=== PATIENT | female | born 1995 | race Caucasian/White ===

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

== ENCOUNTER 2017-03-13 20:58 | Emergency (ER) | payer OTHER ==
[2017-03-13 21:54] VITALS: BP 106/66; PULSE 73; TEMP 98.4; BMI 30.7
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
[2017-03-13] MEDS ORDERED: PANTOPRAZOLE 40 MG TABLET (FP) PO ONE (23:59)
[2017-03-14] MEDS ORDERED: PANTOPRAZOLE 40 MG TABLET (FP) ONE (00:04)
== END 2017-03-14 00:08 | disposition home or self-care (01) ==
LOC: FER 20:58
DX: R10.13 Epigastric pain (principal)
CPT/HCPCS: 76705-TC; 99282-25

== ENCOUNTER 2017-06-11 12:12 | Emergency (ER) | payer OTHER ==
[2017-06-11 12:22] VITALS: BMI 30.9
--- NOTE | 2017-06-11 12:58 | PDOC ---
Attending Attestation - Resident Resident Name: LeungCatalina - ED Attending Attestation I have performed the following: I have examined & evaluated the patient, The case was reviewed & discussed with the resident, I agree w/resident's findings & plan, Exceptions are as noted - HPI HPI: 06/11/17 13:37 22yo female with 1 episode of BRBPR. no lightheaded or dizziness. No abd pain. No vomiting or nausea. No prior episodes. No cp/sob. - Physicial Exam PE: 06/11/17 13:38 gen: aaox3, nad heart: +s1s2 reg Lungs: cta b/l abd: soft, mild epigastric ttp, no rebound or guarding ext: no c/c/e skin: no pallor - Medical Decision Making 06/11/17 13:38 a/p: 22yo female with BRBPR -labs -ua -ucg -rectal heme card eval -reassess 06/11/17 13:39 pt ambulatory with a steady gait. pt nontoxic appearing. 06/11/17 14:36 labs reviewed. hgb stable. pt stable for d/c to home. discussed all reasons to return to the ed and need for follow up. answered all questions. pt without rectal bleeding or brbpr in ed. pt will need to follow up with pmd and gi as an oupt.
[2017-06-11] MEDS ORDERED: MAG HYDROX/AL HYDROX/SIMETH 30 ML UNIT-DOSE CUP PO ONE (13:09)
[2017-06-11] MEDS ORDERED: MAG HYDROX/AL HYDROX/SIMETH 30 ML UNIT-DOSE CUP ONE (13:20)
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
[2017-06-11 14:01] LABS: BASOPHIL 0.8 % (0-2.0); EOSINOPHIL 1.4 % (0-4.5); MCH 30.5 pg (25.7-33.7); MCHC 34.2 g/dl (32.0-36.0); MEAN CELL VOLUME 89.2 fl (80-96); MEAN PLT VOLUME 6.3 fl (7.5-11.1); NEUTROPHILS 52.1 % (42.8-82.8); PLATELET COUNT 312 K/MM3 (134-434); RDW 12.6 % (11.6-15.6); WHITE BLOOD COUNT 9.4 K/mm3 (4.0-10.0)
[2017-06-11 14:04] LABS: STOOL FOR OCCULT BLOOD POSITIVE (NEGATIVE)
[2017-06-11 14:07] LABS: URINE APPEARANCE SLCLOUDY; URINE BILIRUBIN NEGATIVE (NEGATIVE); URINE BLOOD NEGATIVE (NEGATIVE); URINE COLOR LTYELLOW; URINE GLUCOSE (UA) NEGATIVE (NEGATIVE); URINE KETONE NEGATIVE (NEGATIVE); URINE LEUK ESTERASE NEGATIVE (NEGATIVE); URINE NITRITE NEGATIVE (NEGATIVE); URINE UROBILINOGEN NEGATIVE mg/dL (0.2-1.0)
[2017-06-11 14:16] LABS: URINE PROTEIN 2+ (NEGATIVE)
[2017-06-11 14:32] LABS: ANION GAP 11 (8-16); BILIRUBIN,TOTAL 0.3 mg/dL (0.2-1.0); CALCIUM 8.4 mg/dL (8.5-10.1); CO2 22 mmol/L (21-32); CREATININE 0.5 mg/dL (0.55-1.02); GLUCOSE,RANDOM 80 mg/dL (74-106); SGOT/AST 20 U/L (15-37); TOT PROT 6.3 g/dl (6.4-8.2)
[2017-06-11 14:36] LABS: URINE MUCUS RARE; URINE RBC 1 /hpf (0-3); URINE WBC 2 /hpf (3-5)
[2017-06-11 14:40] LABS: ALK PHOS 84 U/L (45-117); SGPT/ALT 22 U/L (12-78)
[2017-06-11 14:47] VITALS: BP 118/76; PULSE 68; TEMP 98.1
== END 2017-06-11 15:04 | disposition home or self-care (01) ==
LOC: JER 12:12
DX: K62.5 Hemorrhage of anus and rectum (principal)
CPT/HCPCS: 36415; 80053; 81003; 81015; 82272; 84703; 85025; 99283-25

== ENCOUNTER 2017-07-22 20:20 | Observation (INO) | payer OTHER ==
--- NOTE | 2017-07-22 20:34 | PDOC ---
History of Present Illness - General History Source: Patient Exam Limitations: No Limitations - History of Present Illness Initial Comments: 07/22/17 20:56 22 year old female, with no significant past medical history, who presents to the emergency room complaining of 3 hours of progressively worsening epigastric pain that feels like burning and radiates to her throat and nausea that began 1 hour after eating. She states that the pain is worse with movement and states that these symptoms feel like acid stomach that she has experienced in the past. She took peptobismol without relief. She has visited the ED on and 03/13/17 with similar complaints - had an negative gallbladder ultrasound and was discharged with protonix. Denies fever, chills, vomiting, Denies diarrhea, constipation. Denies vaginal bleeding, discharge, foul odor. PMD: Dr. Ila Genao PAST MEDICAL HISTORY: no significant history PAST SURGICAL HISTORY: no significant history FAMILY HISTORY: no pertinent history SOCIAL HISTORY: Pt lives with family and is employed. MEDICATIONS: reviewed ALLERGIES: As per nursing notes Review of Systems General: No fevers or chills, no weakness, no weight loss HEENT: No change in vision. No sore throat, No ear pain CardioVascular: No chest pain or shortness of breath Respiratory:No cough, or wheezing. Gastrointestinal: +epigastric pain, nausea. no vomiting, diarrhea or constipation, No rectal bleeding Genitourinary: No dysuria, hematuria, or frequency Musculoskeletal: No joint or muscle pain or swelling Neurologic: No headache, vertigo, dizziness or loss of consciousness Psychiatric: nor depression Skin: No rashes or easy bruising Endocrine: no increased thirst or abnormal weight change Allergic: no skin or latex allergy All other systems reviewed and normal Physical Exam GENERAL: The patient is awake, alert, and fully. Mod distress. tearful oriented, in no acute distress. HEAD: Normal with no signs of trauma. EYES: Pupils equal, round and reactive to light, extraocular movements intact, sclera anicteric, conjunctiva clear. ABDOMEN: + Bowel sounds are slightly decreased. +Diffuse abdominal tenderness that is more pronounced in the epigastric region. No guarding, no rebound. EXTREMITIES: Normal range of motion, no edema. NEUROLOGICAL: Normal speech, normal gait. PSYCH: Normal mood, normal affect. SKIN: Warm, Dry, normal turgor, no rashes or lesions noted. <Estatico,Alexus - Last Filed: 07/22/17 20:57> - General History Source: Patient Exam Limitations: No Limitations - History of Present Illness Initial Comments: 07/23/17 00:10 A portion of this note was documented by scribe services under my direction. I have reviewed the details of the note, within reason, and agree with the documentation. The case summary and management plan written by me. Reexam of patient patient is no moderately tender in right lower quadrant are still no guarding or rebound.. Patient's CAT scan came back positive for acute appendicitis. Discussed with Dr. Rosales who will be the design consultant on the case and Renuka will take the patient to the OR first thing in the morning. Patient will be admitted to the hospitalist service. <Sheila Anna I - Last Filed: 07/23/17 00:29> - General Chief Complaint: Pain Stated Complaint: ABD PAIN Time Seen by Provider: 07/22/17 20:28 Past History <Alexus Rios - Last Filed: 07/22/17 20:57> - Past Medical History GI Disorders: Yes (gastritis) - Suicide/Smoking/Psychosocial Hx Smoking History: Never smoked Have you smoked in the past 12 months: No Information on smoking cessation initiated: No Hx Alcohol Use: No Drug/Substance Use Hx: No Substance Use Type: None <Sheila Anna I - Last Filed: 07/23/17 00:29> - Past Medical History Allergies/Adverse Reactions: Allergies Allergy/AdvReac Type Severity Reaction Status Date / Time No Known Allergies Allergy Verified 07/22/17 20:25 Home Medications: Ambulatory Orders Medroxyprogesterone Acetate [Depo-Provera] 150 mg IM PRN 06/11/17 *Physical Exam - Vital Signs Last Vital Signs Temp Pulse Resp BP Pulse Ox 98.3 F 81 18 134/77 100 07/22/17 20:20 07/22/17 20:20 07/22/17 20:20 07/22/17 20:20 07/22/17 20:20 <Alexus Rios - Last Filed: 07/22/17 20:57> - Vital Signs Last Vital Signs Temp Pulse Resp BP Pulse Ox 98.3 F 81 18 134/77 100 07/22/17 20:20 07/22/17 20:20 07/22/17 20:20 07/22/17 20:20 07/22/17 20:20 <Sheila Anna I - Last Filed: 07/23/17 00:29> ED Treatment Course - LABORATORY CBC & Chemistry Diagram: 07/22/17 20:59 07/22/17 20:59 <Sheila Anna I - Last Filed: 07/23/17 00:29> *DC/Admit/Observation/Transfer <Alexus Rios - Last Filed: 07/22/17 20:57> - Discharge Dispostion Admit: Yes <Sheila Anna I - Last Filed: 07/23/17 00:29> Diagnosis at time of Disposition: Acute appendicitis - Discharge Dispostion Condition at time of disposition: Stable
[2017-07-22] MEDS ORDERED: FAMOTIDINE 20 MG/50 ML IVPB 50 ML IVPB ONE ×2 (20:49→21:00)
[2017-07-22] MEDS ORDERED: morphine CARPU-JECT 4 MG/1 ML DISP.SYRIN IVPUSH ONE (20:49)
[2017-07-22] MEDS ORDERED: morphine SULFATE 4 MG/ML VIAL ONE (21:00)
[2017-07-22 21:04] LABS: URINE APPEARANCE Clear; URINE BILIRUBIN Negative (NEGATIVE); URINE GLUCOSE (UA) Negative (NEGATIVE); URINE KETONE Trace (NEGATIVE); URINE LEUK ESTERASE Negative (NEGATIVE); URINE NITRITE Negative (NEGATIVE)
[2017-07-22 21:05] LABS: URINE BLOOD Trace-intact (NEGATIVE); URINE COLOR YELLOW; URINE PROTEIN 2+ (NEGATIVE)
[2017-07-22 21:10] LABS: BASOPHIL 1.1 % (0-2.0); EOSINOPHIL 0.9 % (0-4.5); MCH 30.7 pg (25.7-33.7); MCHC 34.5 g/dl (32.0-36.0); MEAN PLT VOLUME 6.8 fl (7.5-11.1); NEUTROPHILS 74.2 % (42.8-82.8); PLATELET COUNT 356 K/MM3 (134-434); RDW 11.8 % (11.6-15.6); WHITE BLOOD COUNT 16.4 K/mm3 (4.0-10.8)
[2017-07-22 21:22] LABS: ALBUMIN 3.4 g/dl (3.5-5.0); ALK PHOS 81 U/L (32-92); ANION GAP 7 (8-16); BILIRUBIN,TOTAL 0.6 mg/dl (0.2-1.0); CALCIUM 8.8 mg/dl (8.4-10.2); CO2 21 mmol/L (22-28); CREATININE 0.8 mg/dl (0.6-1.3); GLUCOSE,RANDOM 128 mg/dl (74-106); SGOT/AST 21 U/L (10-42); SGPT/ALT 17 U/L (10-40); TOT PROT 6.7 g/dl (6.4-8.3)
[2017-07-22] MEDS ORDERED: SODIUM CHLORIDE 1,000 ML IV ONE (21:30)
[2017-07-22] MEDS ORDERED: ONDANSETRON 4 MG/2 ML VIAL IVPB ONE (21:30)
[2017-07-22] MEDS ORDERED: ONDANSETRON 4 MG/2 ML VIAL ONE (21:33)
[2017-07-22 21:39] LABS: URINE WBC 0-1 (3-5)
[2017-07-23] MEDS ORDERED: PIPERACILLIN/TAZOBACTAM 3.375 GM VIAL IVPB ONE (00:15)
[2017-07-23] MEDS ORDERED: PIPERACIL/TAZOB 3.375 GM 3.375 GM/50 ML PREMIX IVPB ONE (00:16)
[2017-07-23] MEDS ORDERED: morphine SULFATE 4 MG/ML VIAL ONE (00:27)
[2017-07-23] MEDS ORDERED: morphine CARPU-JECT 4 MG/1 ML DISP.SYRIN IVPUSH ONE (00:27)
[2017-07-23] MEDS ORDERED: ONDANSETRON 4 MG/2 ML VIAL IVPUSH PRN ×2 (00:39→14:19)
[2017-07-23] MEDS ORDERED: morphine CARPU-JECT 2 MG/1 ML DISP.SYRIN IVPUSH PRN (00:39)
[2017-07-23] MEDS ORDERED: SODIUM CHLORIDE 1,000 ML IV SCH (00:45)
--- NOTE | 2017-07-23 01:10 | HP ---
CHIEF COMPLAINT: abdominal pain PCP: Ila Genao HISTORY OF PRESENT ILLNESS: This is a 22 year old female with no past medical history who presented to the ED with abdominal since approx 430pm. She states that initially the pain was all over, but especially epigastric and had a burning sensation. She took peptobismol without relief and the pain worsened so she came here. Her pain now is more localized to her RLQ. She also reports nausea but denies diarrhea or constipation. ER course was notable for: (1) WBC 16.4 (2) CT c/w acute nonperforated appendicitis Recent Travel: pt denies PAST MEDICAL HISTORY: none PAST SURGICAL HISTORY: none Social History: Smoking: pt denies Alcohol: pt denies Drugs: pt denies Family History: mother, father, 6 siblings all alive and well, no medical problems. Unknown if grandparents had any medical problems Allergies No Known Allergies Allergy (Verified 07/22/17 20:25) HOME MEDICATIONS: 3 Medication Instructions Recorded Medroxyprogesterone Acetate 150 mg IM PRN 06/11/17 [Depo-Provera] REVIEW OF SYSTEMS CONSTITUTIONAL: Absent: fever, chills, diaphoresis, generalized weakness, malaise, loss of appetite, weight change HEENT: Absent: rhinorrhea, nasal congestion, throat pain, throat swelling, difficulty swallowing, mouth swelling, ear pain, eye pain, visual changes CARDIOVASCULAR: Absent: chest pain, syncope, palpitations, irregular heart rate, lightheadedness , peripheral edema RESPIRATORY: Absent: cough, shortness of breath, dyspnea with exertion, orthopnea, wheezing, stridor, hemoptysis GASTROINTESTINAL: Present: abdominal pain, nausea Absent: abdominal distension, vomiting, diarrhea, constipation, melena, hematochezia GENITOURINARY: Absent: dysuria, frequency, urgency, hesitancy, hematuria, flank pain, genital pain MUSCULOSKELETAL: Absent: myalgia, arthralgia, joint swelling, back pain, neck pain SKIN: Absent: rash, itching, pallor HEMATOLOGIC/IMMUNOLOGIC: Absent: easy bleeding, easy bruising, lymphadenopathy, frequent infections ENDOCRINE: Absent: unexplained weight gain, unexplained weight loss, heat intolerance, cold intolerance NEUROLOGIC: Absent: headache, focal weakness or paresthesias, dizziness, unsteady gait, seizure, mental status changes, bladder or bowel incontinence PSYCHIATRIC: Absent: anxiety, depression, suicidal or homicidal ideation, hallucinations. PHYSICAL EXAMINATION Vital Signs - 24 hr 3 07/22/17 07/23/17 20:20 00:36 Temperature 98.3 F 99.1 F Pulse Rate 81 Pulse Rate [ 84 Radial] Respiratory 18 20 Rate Blood Pressure 134/77 Blood Pressure 119/79 [Arm] O2 Sat by Pulse 100 98 Oximetry (%) GENERAL: Awake, alert, and fully oriented, in no acute distress. HEAD: Normal with no signs of trauma. EYES: Pupils equal, round and reactive to light, extraocular movements intact, sclera anicteric, conjunctiva clear. No lid lag. EARS, NOSE, THROAT: Ears normal, nares patent, oropharynx clear without exudates. Moist mucous membranes. NECK: Normal range of motion, supple without lymphadenopathy, JVD, or masses. LUNGS: Breath sounds equal, clear to auscultation bilaterally. No wheezes, and no crackles. No accessory muscle use. HEART: Regular rate and rhythm, normal S1 and S2 without murmur, rub or gallop. ABDOMEN: Soft, not distended, normoactive bowel sounds, + guarding, + rebound, no masses. No hepatomegaly or splenomegaly. + generalized tenderness greatest in RLQ MUSCULOSKELETAL: Normal range of motion at all joints. No bony deformities or tenderness. No CVA tenderness. UPPER EXTREMITIES: 2+ pulses, warm, well-perfused. No cyanosis. No clubbing. No peripheral edema. LOWER EXTREMITIES: 2+ pulses, warm, well-perfused. No calf tenderness. No peripheral edema. NEUROLOGICAL: Cranial nerves II-XII intact. Normal speech. Normal gait. PSYCHIATRIC: Cooperative. Good eye contact. Appropriate mood and affect. SKIN: Warm, dry, normal turgor, no rashes or lesions noted, normal capillary refill. Laboratory Results - last 24 hr 3 07/22/17 07/22/17 07/22/17 20:59 20:59 20:59 WBC 16.4 H RBC 4.89 Hgb 15.0 Hct 43.5 MCV 89.0 MCH 30.7 MCHC 34.5 RDW 11.8 Plt Count 356 MPV 6.8 L Neutrophils % 74.2 Lymphocytes % 17.4 Monocytes % 6.4 Eosinophils % 0.9 Basophils % 1.1 Sodium 135 L Potassium 3.6 Chloride 107 Carbon Dioxide 21 L Anion Gap 7 L BUN 10 Creatinine 0.8 Creat Clearance w eGFR > 60 Random Glucose 128 H Calcium 8.8 Total Bilirubin 0.6 AST 21 ALT 17 Alkaline Phosphatase 81 Total Protein 6.7 Albumin 3.4 L Lipase 44 Urine Color Yellow Urine Appearance Clear Urine pH 7.0 Ur Specific [place] 1.020 Urine Protein 2+ H Urine Glucose (UA) Negative Urine Ketones Trace Urine Blood Trace-intact H Urine Nitrite Negative Urine Bilirubin Negative Urine Urobilinogen 1.0 Ur Leukocyte Esterase Negative Urine RBC 2-4 Urine WBC 0-1 Urine HCG, Qual Negative Radiology Reports CT abdomen and pelvis + acute appendicitis ASSESSMENT/PLAN: 22yF with no PMH presented to the ED for abdominal pain with nausea. She is being admitted to observation status for acute appendicitis. Acute appendicitis - given zosyn 3.375 in ED x 1, additional dose ordered for 6am - ED spoke with Dr. Rosales who states that Dr. Grayson will take pt to OR first thing in am - NPO, IVF NS @ 100cc/hr - no medical contraindication to surgical intervention DVT PPX - deferred as expected LOS less than 48 h in uncomplicated appendicitis FEN - NS @ 100cc/hr - BMP WNL - NPO Dispo: Pt requires inpatient observation for management of her emergent condition. Addendum: 130am: Spoke with Dr. Grayson who is requesting alternate surgical consultation. Will DW Dr. Chen in am 6am: Dr. Chen in agreement to take case. Dr Grayson made aware. Visit type - Emergency Visit Emergency Visit: Yes ED Registration Date: 07/22/17 Care time: The patient presented to the Emergency Department on the above date and was hospitalized for further evaluation of their emergent condition. - New Patient This patient is new to me today: Yes Date on this admission: 07/23/17 - Critical Care Critical Care patient: No
[2017-07-23 01:49] VITALS: BMI 32.9
[2017-07-23] MEDS: HYDROmorphone HCL CARPU-JECT 1 MG/1 ML DISP.SYRIN IVPUSH PRN ×2 (02:17→08:06)
[2017-07-23] MEDS ORDERED: PIPERACILLIN/TAZOB 3.375 GM/50 ML PRE-DOCKED IVPB ONE (06:30)
--- NOTE | 2017-07-23 07:51 | CONSULT ---
- Consultation REQUESTING PROVIDER: Romie Chen - General Surgery CONSULT REQUEST: We have been asked to surgically evaluate this patient for confirmed acute appy on CT scan PCP: Amairani Dutton HPI: Called to eval 22yo female without PMHx, presents to ED w/ c/o abd pain since 4:30 AM. States her abd pain was pretty diffuse but now localized to RLQ. She tried to alleviate the pain with pepto bismol...unsuccessful. Admits to loss of appetite and nausea. Denies vomiting, diarrhea, constipation or trauma. Denies hematuria or flank pain. PMHx: Denies. PSHx: Denies. Home Meds: Medroxyprogesterone Acetate 150 mg IM PRN Allergies: NKDA ROS: CONSTITUTIONAL: Absent: fdiaphoresis, generalized weakness, malaise, weight change CARDIOVASCULAR: Absent: irregular heart rate, lightheadedness, peripheral edema RESPIRATORY: Absent: wheezing, stridor, hemoptysis GASTROINTESTINAL:Absent: See HPI. GENITOURINARY: Absent: dysuria, frequency, urgency, hesitancy MUSCULOSKELETAL: Absent: myalgia, arthralgia, joint swelling, back pain, neck pain SKIN: Absent: rash, itching, pallor HEMATOLOGIC/IMMUNOLOGIC: Absent: easy bleeding, easy bruising, lymphadenopathy NEUROLOGIC: Absent: headache, focal weakness, paresthesias, dizziness, unsteady gait, seizure, mental status changes, PSYCHIATRIC: Absent: anxiety, depression, suicidal or homicidal ideation, hallucinations. PHYSICAL EXAM: GENERAL: Awake, alert, and fully oriented, in no acute distress. HEAD: Normal with no signs of trauma. EYES: PERRL, sclera anicteric, conjunctiva clear. NECK: Normal ROM, supple without lymphadenopathy, JVD, or masses. LUNGS: CTA bilat anteriorly HEART: RRR ABDOMEN: Obese body habitus. + McBurney's point tenderness. Voluntary guarding RLQ. No rigidity. MUSCULOSKELETAL: No CVA tenderness. UE: 2+ pulses, warm, well-perfused. No cyanosis. Cap refill <2 seconds. No peripheral edema. LE: 2+ pulses, warm, well-perfused. No calf tenderness. No peripheral edema. PSYCH: Cooperative. Good eye contact. Appropriate mood and affect. SKIN: Warm, dry, normal turgor, no rashes or lesions noted. Vital Signs Temperature 98.0 F 10/27/17 05:00 Pulse Rate 104 H 07/23/17 05:00 Respiratory Rate 20 07/23/17 05:00 Blood Pressure 121/79 07/23/17 05:00 O2 Sat by Pulse Oximetry (%) 100 07/23/17 06:01 Lab Results WBC 16.4 K/mm3 (4.0-10.8) H 07/22/17 20:59 RBC 4.89 M/mm3 (3.60-5.2) 07/22/17 20:59 Hgb 15.0 GM/dl (10.7-15.3) 07/22/17 20:59 Hct 43.5 % (32.4-45.2) 07/22/17 20:59 MCV 89.0 fl (80-96) 07/22/17 20:59 MCHC 34.5 g/dl (32.0-36.0) 07/22/17 20:59 RDW 11.8 % (11.6-15.6) 07/22/17 20:59 Plt Count 356 K/MM3 (134-434) 07/22/17 20:59 Sodium 135 mmol/L (136-145) L 07/22/17 20:59 Potassium 3.6 mmol/L (3.5-5.1) 07/22/17 20:59 Chloride 107 mmol/L (98-107) 07/22/17 20:59 Carbon Dioxide 21 mmol/L (22-28) L 07/22/17 20:59 Anion Gap 7 (8-16) L 07/22/17 20:59 BUN 10 mg/dl (7-18) 07/22/17 20:59 Creatinine 0.8 mg/dl (0.6-1.3) 07/22/17 20:59 Random Glucose 128 mg/dl (74-106) H 07/22/17 20:59 Calcium 8.8 mg/dl (8.4-10.2) 07/22/17 20:59 Problem List - Problems (1) Acute appendicitis Assessment/Plan: Informed consent obtained for laparoscopic appendectomy, possible open AFTER risks, benefits, alternatives explained to patient. Opportunity for questions...patient had none. NPO IVF GI / DVT PPX Type and screen ordered Coags ordered HCG ordered Above plan discussed with Dr. Chen and agrees Code(s): K35.80 - UNSPECIFIED ACUTE APPENDICITIS Qualifiers: Acute appendicitis type: with localized peritonitis Qualified Code(s ): K35.3 - Acute appendicitis with localized peritonitis; K35.3 - Acute appendicitis with localized peritonitis Visit type - Case Type Case Type: ED Admission - Emergency Emergency Visit: Yes ED Registration Date: 07/23/17 Care time: The patient presented to the Emergency Department on the above date and was hospitalized for further evaluation of their emergent condition. - New patient This patient is new to me today: Yes Date on this admission: 07/23/17
[2017-07-23 09:21] LABS: INR 1.18 (0.82-1.09); PROTHROMBIN TIME (PATIENT) 13.2 SEC (10.2-13.0)
--- NOTE | 2017-07-23 10:18 | PN ---
Progress Note (short form) - Note Progress Note: Attending Surgeon I was called to see this patient at 0609 hrs. 07/23/17. Patient seen and evaluated; concur w/ a/p as outlined in Surgical Consult by ANNALISA Bone For lap appendectomy possible open; r/b/t d/w the patient and informed consent obtained. Romie Chen MD FACS
[2017-07-23] MEDS ORDERED: MIDAZOLAM HCL 2 MG/2 ML SINGLE DOSE VIAL ONE (12:00)
[2017-07-23] MEDS ORDERED: fentaNYL CITRATE 250 MCG/5 ML VIAL ONE (12:05)
[2017-07-23] MEDS ORDERED: PROPOFOL 20 ML ONE (12:06)
[2017-07-23] MEDS ORDERED: ROCURONIUM BROMIDE 50 MG/5 ML VIAL ONE ×2 (12:07→13:14)
[2017-07-23] MEDS ORDERED: ONDANSETRON 4 MG/2 ML VIAL ONE (12:17)
[2017-07-23] MEDS ORDERED: KETOROLAC TROMETHAMINE 30 MG/1 ML VIAL ONE (12:17)
[2017-07-23] MEDS ORDERED: DEXAMETHASONE SOD PHOSPHATE 4 MG/1 ML VIAL ONE (12:17)
[2017-07-23] MEDS ORDERED: LIDOCAINE HCL 2% JELLY (5 ML/TUBE) ONE (12:30)
[2017-07-23] MEDS ORDERED: BUPIVACAINE HCL/PF (5 MG/ML) 30 ML VIAL IJ ONE ×2 (12:37)
--- NOTE | 2017-07-23 12:40 | PN ---
Physical Exam: SUBJECTIVE: Patient seen and examined, reports right lower quadrant pain OBJECTIVE: patient is a 22 y/o female with no significant past medical history, admitted from the emergency department for acute appendicitis. Vital Signs Period Temp Pulse Resp BP Sys/Mortensen Pulse Ox Last 24 Hr 97.6 F-98.7 F 79-104 18-20 121-126/72-79 99-100 GENERAL: The patient is awake, alert, and fully oriented, in no acute distress. HEAD: Normal with no signs of trauma. EYES: PERRL, extraocular movements intact, sclera anicteric, conjunctiva clear. No ptosis. ENT: Ears normal, nares patent, oropharynx clear without exudates, moist mucous membranes. NECK: Trachea midline, full range of motion, supple. LUNGS: Breath sounds equal, clear to auscultation bilaterally, no wheezes, no crackles, no accessory muscle use. HEART: Regular rate and rhythm, S1, S2 without murmur, rub or gallop. ABDOMEN: Soft, + right LQ pain, , nondistended, normoactive bowel sounds, no guarding, no rebound, no hepatosplenomegaly, no masses. EXTREMITIES: 2+ pulses, warm, well-perfused, no edema. NEUROLOGICAL: Cranial nerves II through XII grossly intact. Normal speech, gait not observed. PSYCH: Normal mood, normal affect. SKIN: Warm, dry, normal turgor, no rashes or lesions noted Laboratory Results - last 24 hr 07/23/17 07/23/17 07/23/17 08:00 08:00 08:47 PT with INR 13.2 H INR 1.18 Beta HCG, Quant < 1.0 Blood Type O POSITIVE Antibody Screen 07/23/17 12:06 PT with INR INR Beta HCG, Quant Blood Type O POSITIVE Antibody Screen Negative Active Medications Generic Name Dose Route Start Last Admin Trade Name Freq PRN Reason Stop Dose Admin Hydromorphone HCl 1 mg 07/23/17 01:54 07/23/17 08:06 Dilaudid Injection - IVPUSH 07/24/17 01:53 1 mg Q4H PRN Administration PAIN Sodium Chloride 1,000 mls @ 100 mls/hr 07/23/17 00:45 07/23/17 01:39 Normal Saline - IV 100 mls/hr ASDIR BOYD Administration Ondansetron HCl 4 mg 07/23/17 00:39 Zofran Injection IVPUSH Q6H PRN NAUSEA ASSESSMENT/PLAN: 1) Acute appendicitis - zosyn given in ED & at 630am - pending OR today for appendectomy, Dr Chen, general surgeon, consulted and following - npo-->ivf DVT PPX - deferred as expected LOS less than 48 h in uncomplicated appendicitis FEN - NS @ 100cc/hr - BMP WNL - NPO pt is medically optimized for surgery Dispo: Pt requires inpatient observation for management of her emergent condition. Visit type - Emergency Visit Emergency Visit: Yes ED Registration Date: 07/23/17 Care time: The patient presented to the Emergency Department on the above date and was hospitalized for further evaluation of their emergent condition. - New Patient This patient is new to me today: No - Critical Care Critical Care patient: No - Discharge Referral Referred to [facility] Med P.C.: No
[2017-07-23] MEDS ORDERED: HYDROmorphone HCL/PF 1 MG/ML VIAL (FOR PYXIS CHARGING ONLY) ONE ×2 (12:42→13:17)
[2017-07-23] MEDS ORDERED: NEOSTIGMINE METHYLSULFATE 0.5 MG/ML - 10 ML MDV ONE (13:43)
[2017-07-23] MEDS ORDERED: GLYCOPYRROLATE 0.2 MG/1 ML VIAL ONE (13:44)
[2017-07-23] MEDS ORDERED: GUM MASTIC/STORAX/MSAL/ALCOHOL 1 DRP DROPSBTL MC ONE (13:58)
[2017-07-23] MEDS ORDERED: PROMETHAZINE HCL 25 MG/1 ML VIAL IVPUSH PRN (14:19)
[2017-07-23] MEDS ORDERED: oxyCODONE HCL 5 MG TABLET PO PRN ×2 (14:19)
--- NOTE | 2017-07-23 14:24 | OP ---
Operative Note - Note: Operative Date: 07/23/17 Pre-Operative Diagnosis: appendicitis Operation: laprascopic appendectomy Post-Operative Diagnosis: Same as Pre-op Surgeon: Romie Chen Pinion And Wheel Truer: Isabell Bush Anesthesiologist/WALLPAPER HANGER HELPER: Aris Thibodeaux Anesthesia: General Specimens Removed: appendix Estimated Blood Loss (mls): 30 Fluid Volume Replaced (mls): 1,300 Operative Report Dictated: Yes
--- NOTE | 2017-07-23 14:26 | SURG ---
Surgery Professional Shopper Note Professional Shopper: Isabell Bush PA-C Date of Service: 07/23/17 Diagnosis: appendicitis Procedure: laprascopic appendectomy I was present for the entirety of the operative procedure. For further detail, please refer to operative report. Visit type - Case Type Case Type: ED Admission - Emergency Emergency Visit: Yes ED Registration Date: 07/23/17 Care time: The patient presented to the Emergency Department on the above date and was hospitalized for further evaluation of their emergent condition. - New patient This patient is new to me today: Yes Date on this admission: 07/23/17
[2017-07-23] MEDS ORDERED: MEDROXYPROGESTERONE ACETATE IM SCH (14:30)
[2017-07-23] MEDS ORDERED: LACTATED RINGERS SOLUTION 1,000 ML IV SCH (14:30)
[2017-07-24 07:14] VITALS: BP 116/61; PULSE 79; TEMP 98.7
--- NOTE | 2017-07-24 11:06 | PN ---
Progress Note (short form) - Note Progress Note: Attending Surgeon POD #1 s/p lap appendectomy No c/o; tolerated diet; voided; has been oob VSS AF abdomen-soft; flat; port site tenderness only;port site dressings c/d/i; o/w normal calves-soft; nt; non swollen IMP:doing well PLAN:D/c to office f/u next week; instructed on gradual return to ADL. Romie Chen MD FACS
--- NOTE | 2017-07-24 11:29 | DS ---
Physical Exam: SUBJECTIVE: Patient seen and examined. Reports feeling much better. Minimal incisional pain. OBJECTIVE: Vital Signs 3 Period Temp Pulse Resp BP Sys/Mortensen Pulse Ox Last 24 Hr 98.4 F-99.0 F 78-106 16-20 104-122/48-82 95-99 PHYSICAL EXAM GENERAL: The patient is awake, alert, and fully oriented, in no acute distress. HEAD: Normal with no signs of trauma. EYES: PERRL, extraocular movements intact, sclera anicteric, conjunctiva clear. ENT: Ears normal, nares patent, oropharynx clear without exudates, moist mucous membranes. NECK: Trachea midline, full range of motion, supple. LUNGS: Breath sounds equal, clear to auscultation bilaterally, no wheezes, no crackles, no accessory muscle use. HEART: Regular rate and rhythm, S1, S2 without murmur, rub or gallop. ABDOMEN: Soft, nontender, nondistended, normoactive bowel sounds, no guarding, no rebound, no hepatosplenomegaly, no masses. dressings C/D/I EXTREMITIES: 2+ pulses, warm, well-perfused, no edema. NEUROLOGICAL: Cranial nerves II through XII grossly intact. Normal speech, gait not observed. PSYCH: Normal mood, normal affect. SKIN: Warm, dry, normal turgor, no rashes or lesions noted. LABS 3 07/22/17 07/22/17 07/22/17 07/23/17 07/23/17 20:59 20:59 20:59 08:00 08:47 WBC 16.4 H RBC 4.89 Hgb 15.0 Hct 43.5 MCV 89.0 MCH 30.7 MCHC 34.5 RDW 11.8 Plt Count 356 MPV 6.8 L Neutrophils % 74.2 Lymphocytes % 17.4 Monocytes % 6.4 Eosinophils % 0.9 Basophils % 1.1 PT with INR 13.2 H INR 1.18 Sodium 135 L Potassium 3.6 Chloride 107 Carbon Dioxide 21 L Anion Gap 7 L BUN 10 Creatinine 0.8 Creat Clearance w eGFR > 60 Random Glucose 128 H Calcium 8.8 Total Bilirubin 0.6 AST 21 ALT 17 Alkaline Phosphatase 81 Total Protein 6.7 Albumin 3.4 L Lipase 44 Beta HCG, Quant < 1.0 Urine Color Yellow Urine Appearance Clear Urine pH 7.0 Ur Specific [place] 1.020 Urine Protein 2+ H Urine Glucose (UA) Negative Urine Ketones Trace Urine Blood Trace-intact H Urine Nitrite Negative Urine Bilirubin Negative Urine Urobilinogen 1.0 Ur Leukocyte Esterase Negative Urine RBC 2-4 Urine WBC 0-1 Urine HCG, Qual Negative Blood Type O POSITIVE Antibody Screen Negative Spec Expiration Date Radiology Reports CT abdomen and pelvis with IV contrast. Indication: Abdominal pain. Guarding. Technique: Contiguous axial CT images of the abdomen and pelvis were obtained with oral contrast, following the intravenous administration of 75 mL of Omnipaque 350 contrast. Coronal and sagittal reconstructions obtained. Comparison: None. Findings: The visualized lung bases are essentially clear, with only minimal dependent change. The heart is not enlarged. The liver is normal in size and contour. The gallbladder is not pathologically distended. There is no intrahepatic or extrahepatic biliary ductal dilatation. The pancreas is unremarkable. Normal size spleen with no focal lesions. There is a 1.5 x 1.2 cm splenule just inferior to the hilum. There is no mass within the adrenal glands. The kidneys are normal in size with symmetric enhancement. There is no hydroureteronephrosis. Normal caliber abdominal aorta. No pathologically enlarged retroperitoneal lymph nodes by size criteria. There are no pathologically dilated loops of bowel to suggest obstruction. The mid to distal appendix is fluid-filled and thickened with surrounding fat stranding ( coronal images 50-41), measuring up to 9 mm in diameter. There is periappendiceal fat stranding and small volume of free fluid adjacent to the appendix. There is no free intraperitoneal air. No drainable collection within the abdomen or pelvis. The urinary bladder and uterus are unremarkable. No acute fracture in the visualized osseous structures. There are multilevel Schmorl's nodes in the endplates of the thoracic and lumbar spines. Bulging annulus present at L4-L5 and L5-S1. Impression: Acute appendicitis involving the mid to distal appendix with no CT evidence of perforation. Small volume of fluid adjacent to the appendix is presumably reactive. No free intraperitoneal air. No drainable collection. Reported By: Anderson Mix MD 07/23/17 0010 HOSPITAL COURSE: Date of Admission:07/23/17 Date of Discharge: 07/24/17 This is a 22 year old female with no past medical history who presented to the ED with abdominal since approx 430pm. CT scan done in ED revealed acute appendicitis. Surgical consultation was obtained and pt was taken to the OR for laparoscopic appendectomy on 07/23. Postoperatively she is doing well. No distress. Tolerating regular diet. She was evaluated for surgery this morning and cleared for DC. ASSESSMENT AND PLAN Acute appendicitis - s/p appendectomy - f/u with surgery 7-10 days as outpatient Minutes to complete discharge: 45 Discharge Summary Reason For Visit: ABD PAIN Current Active Problems Acute appendicitis (Acute) Condition: Good - Instructions Diet, Activity, Other Instructions: Dr. Chen Discharge Instructions Dear RED SALINAS, Post Operative Instructions Physical activity Resume your normal everyday activity as tolerated no heavy lifting or exercise until seen by your surgeon. You may walk unlimited amounts of and climb stairs. You may resume driving the car when you feel safe and comfortable behind the wheel. Wound care If you have a bandage, leave it on, and keep dry for 48 - 72 hours. After that time discard the outer bandage. If there are tapes on the skin under the outer bandage, leave them in place. They will peel off in the next 7 to 10 days. Do Not peel them off. You may shower 2 days after surgery. If there are tapes present on the skin, they can get wet. Diet There are no dietary restrictions. Eat healthy, high-fiber foods. Drink 6 to 8 glasses of liquid each day. This will assist in keeping your bowels are regular. Pain management You may take Tylenol or acetaminophen or Ibuprofen (for example, Motrin, Advil etc.) Any pain prescription medication ordered should be taken as prescribed for moderate to severe pain. Call Dr. Chen for any of the following: Severe pain not relieved by medication Fever of 101 or higher Excessive bleeding or drainage on dressing Inability to urinate Call the office at [phone] for a post operative appointment in 7 - 10 days. DO NOT RETURN TO WORK UNTIL CLEARED BY YOUR SURGEON. Referrals: Romie Chen MD [Staff Physician] - 1 Week Disposition: HOME - Home Medications Comprehensive Discharge Medication List: Ambulatory Orders Medroxyprogesterone Acetate [Depo-Provera] 150 mg IM PRN 06/11/17 Oxycodone HCl/Acetaminophen [Percocet 5-325 mg Tablet] 1 tab PO Q4H PRN #20 tablet MDD 6 07/23/17 This patient is new to me today: No Emergency Visit: Yes ED Registration Date: 07/22/17 Care time: The patient presented to the Emergency Department on the above date and was hospitalized for further evaluation of their emergent condition. Critical Care patient: No - Discharge Referral Referred to [facility] No
--- NOTE | 2017-07-27 14:03 | PATH ---
Surgical Pathology Report Patient Name: RED SALINAS Med. Rec. #: [id number] /Age/Gender: 1995 (Age: 22) / F Account: [id number] Location: [facility] MED-SURG Taken: 07/23/2017 Received: 07/23/2017 Reported: 07/27/2017 Physicians: Romie Chen MD Specimen(s) Received APPENDIX Clinical History Abdominal pain Final Diagnosis APPENDIX, APPENDECTOMY: ACUTE APPENDICITIS AND PERIAPPENDICITIS. Electronically Signed Aj Rush M.D. Gross Description Received in formalin, labeled "appendix," is a 7.5 cm. in length vermiform appendix with a stapled margin of resection and moderate attached fat. The serosa is carson-bryson with attached exudate. Sectioning reveals a dilated lumen containing brown fecal material. The wall of the appendix averages 0.2 cm. in thickness. Credit Front Office Developer sections are submitted in one cassette. /07/26/2017 saudi/07/26/2017
--- NOTE | 2017-07-28 14:00 | OP ---
DATE OF OPERATION: 07/23/2017 PREOPERATIVE DIAGNOSIS: Acute appendicitis. POSTOPERATIVE DIAGNOSIS: Acute appendicitis. PROCEDURE: Laparoscopic appendectomy. SURGEON: Romie Chen MD INVENTORY CONTROL ASSISTANT: Isabell Bush PA-C, and ANNALISA Hewitt ANESTHESIA: General. OPERATIVE FINDINGS: Acute suppurative appendicitis. The rest of the findings are unremarkable. PROCEDURE: The patient was placed on the operating table in supine position. After the induction of general anesthesia, the patient's abdomen was prepped with ChloraPrep and prepped and draped in sterile fashion. A timeout was taken, then pneumoperitoneum was established above the umbilicus using a direct visual approach into the peritoneal cavity and placement of a 12-mm balloon port. Laparoscopy was carried out after the placement of a 12-mm suprapubic port and a left lower quadrant 5-mm port, and the previously noted findings were observed. The appendix was grasped with a Blakeslee clamp and then the mesoappendix identified and serially divided using the LigaSure device. The appendix was identified at its base at the confluence of the tinea, and then a 45-mm Endo TASHI blue load stapler was fired across the base of the appendix. The appendix was then placed in a specimen retrieval bag and pulled out through the suprapubic port. Pneumoperitoneum was reestablished and hemostasis checked for and noted to be good. Irrigation was carried out, and then all ports were removed under laparoscopic vision without evidence of bleeding from the port sites. Each port site was infiltrated with 0.5% Marcaine, and the defects at the suprapubic port and the umbilical ports were closed with a single [id number] 0 Vicryl suture. The skin edges in each case were reapproximated with 4-0 Monocryl in a subcuticular fashion, followed by Steri-Strips and Band-Aid dressings. The procedure was trimmed at this point and the patient aroused from general anesthesia and transferred to the postanesthesia care unit in stable condition awake and alert. ESTIMATED BLOOD LOSS: 10 mL. REPLACEMENTS: Crystalloid. DRAINS: None. SPECIMENS: Appendix to Pathology. I, Romie Chen, was physically present in the operating room from the time the patient was placed on the operating table until she was transferred to the postanesthesia care unit in my accompaniment. MD TOLU [id number]
== END 2017-07-24 13:00 | disposition home or self-care (01) ==
LOC: FER 20:20 → FM/S 07-23 00:42
PROVIDERS: ADMIT Internal Medicine; ATTEND Nurse Practitioner Family
PROC: 0DTJ4ZZ Resection of Appendix, Percutaneous Endoscopic Approach (ICD-10-PCS; principal; 2017-07-23 12:07)
DX: K35.3 Acute appendicitis with localized peritonitis (principal)
CPT/HCPCS: 36415; 74177-TC; 80053; 81003; 81015; 83690; 84702; 84703; 85025; 85610; 86850; 86900; 86901; 88304-TC; 94760; 99284-25; G0378

== ENCOUNTER 2017-10-10 17:56 | Emergency (ER) | payer OTHER ==
[2017-10-10 17:59] VITALS: BP 121/75; PULSE 81; TEMP 99.1; BMI 32.5
--- NOTE | 2017-10-10 19:03 | PDOC ---
History of Present Illness - General Chief Complaint: Ear Problem Stated Complaint: EAR PAIN Time Seen by Provider: 10/10/17 18:34 History Source: Patient Exam Limitations: No Limitations - History of Present Illness Initial Comments: 10/10/17 18:57 Patient is a 22-year-old female with no past medical history presents emergency department tonight complaining of left ear pain. Patient states that approximately 2 weeks ago she had a cold when she had fever, sore throat, cough , earache and body aches. She states that her symptoms have resolved except for the left ear pain. She states that she feels like it has to pop but it won' t. No recent fevers, chills, sore throat, cough, nausea, vomiting or diarrhea. Past History - Travel Traveled outside of the country in the last 30 days: No Close contact w/someone who was outside of country & ill: No - Past Medical History Allergies/Adverse Reactions: Allergies Allergy/AdvReac Type Severity Reaction Status Date / Time No Known Allergies Allergy Verified 10/10/17 17:59 Home Medications: Ambulatory Orders Amoxicillin - [Amoxicillin 500mg Capsule -] 500 mg PO BID #14 capsule 10/10/17 Anemia: No Asthma: No Cancer: No Cardiac Disorders: No CVA: No COPD: No CHF: No DVT: No Dementia: No Diabetes: No GI Disorders: Yes (gastritis) Disorders: No HTN: No Hypercholesterolemia: No Liver Disease: No Seizures: No Thyroid Disease: No - Surgical History Abdominal Surgery: No Appendectomy: Yes Cardiac Surgery: No Cholecystectomy: No Lung Surgery: No Neurologic Surgery: No Orthopedic Surgery: No - Suicide/Smoking/Psychosocial Hx Smoking History: Never smoked Have you smoked in the past 12 months: No Hx Alcohol Use: Yes (SOCIAL) Drug/Substance Use Hx: No Substance Use Type: None Hx Substance Use Treatment: No Review of Systems - Review of Systems Able to Perform ROS?: Yes Comments:: 10/10/17 18:59 CONSTITUTIONAL: Absent: fever, chills, diaphoresis, generalized weakness, malaise, loss of appetite HEENT: Present: L ear pain Absent: rhinorrhea, nasal congestion, throat pain, throat swelling, difficulty swallowing, mouth swelling, ear pain, eye pain, visual Changes CARDIOVASCULAR: Absent: chest pain, loss of consciousness, palpitations, irregular heart rate, peripheral edema RESPIRATORY: Absent: cough, shortness of breath, dyspnea with exertion, orthopnea, wheezing, stridor, hemoptysis GASTROINTESTINAL: Absent: abdominal pain, abdominal distension, nausea, vomiting, diarrhea, constipation, melena, hematochezia GENITOURINARY: Absent: dysuria, frequency, urgency, hesitancy, hematuria, flank pain, genital pain MUSCULOSKELETAL: Absent: myalgia, arthralgia, joint swelling SKIN: Absent: rash, itching, pallor HEMATOLOGIC/IMMUNOLOGIC: Absent: easy bleeding, easy bruising, lymphadenopathy, frequent infections ENDOCRINE: Absent: unexplained weight gain, unexplained weight loss, heat intolerance, cold intolerance NEUROLOGIC: Absent: headache, focal weakness or paresthesias, dizziness, unsteady gait, seizure, mental status changes, bladder or bowel incontinence PSYCHIATRIC: Absent: anxiety, depression, suicidal or homicidal ideation, hallucinations. Is the patient limited [place] Citizen proficient: No *Physical Exam - Vital Signs Last Vital Signs Temp Pulse Resp BP Pulse Ox 99.1 F 81 20 121/75 98 10/10/17 17:56 10/10/17 17:56 10/10/17 17:56 10/10/17 17:56 10/10/17 17:56 - Physical Exam Comments: 10/10/17 19:03 GENERAL: The patient is awake, alert, and fully oriented, in no acute distress. HEAD: Normal with no signs of trauma. EARS: Ear canals without drainage or swelling b/l. R TM clear with good landmarks and cone of light. L TM bulging, with poor cone of light and mild erythema. EYES: Pupils equal, round and reactive to light, extraocular movements intact, sclera anicteric, conjunctiva clear. EXTREMITIES: Normal range of motion, no edema. NEUROLOGICAL: Normal speech, normal gait. PSYCH: Normal mood, normal affect. SKIN: Warm, Dry, normal turgor, no rashes or lesions noted. Medical Decision Making - Medical Decision Making 10/10/17 19:04 Patient is a 22-year-old female who presents emergency Department with an acute left otitis media. Given that she's had her symptoms for 2 weeks we'll treat with antibiotics at this time. We'll discharge the patient home with follow-up to her primary care doctor. Patient understands all discharge instructions and all questions were answered. *DC/Admit/Observation/Transfer Diagnosis at time of Disposition: Otitis media Qualifiers: Otitis media type: suppurative Chronicity: acute Laterality: left Recurrence: not specified as recurrent Spontaneous tympanic membrane rupture: without spontaneous rupture Qualified Code(s): H66.002 - Acute suppurative otitis media without spontaneous rupture of ear drum, left ear - Discharge Dispostion Disposition: HOME Condition at time of disposition: Good Admit: No - Referrals Referrals: Jermaine Ross MD [Staff Physician] - - Patient Instructions Printed Discharge Instructions: DI for Otitis Media (Middle Ear Infection)- Child Additional Instructions: You have an ear infection. Please take the amoxicillin twice a day for one week. You may take Tylenol or Motrin as needed for pain. Please drink plenty of fluids Please follow-up with your primary care doctor within 2-3 days. Return to the emergency department if you have worsening pain, headaches, fevers , or any changes in her symptoms. - Post Discharge Activity Forms/Work/School Notes: Back to Work
== END 2017-10-10 19:09 | disposition home or self-care (01) ==
LOC: JERFT 17:56
DX: H66.002 Acute suppurative otitis media without spontaneous rupture of ear drum, left ear (principal)
CPT/HCPCS: 99281-25

== ENCOUNTER 2017-11-03 20:19 | Emergency (ER) | payer OTHER ==
[2017-11-03 20:35] VITALS: BP 123/78; PULSE 102; TEMP 98.6; BMI 30.9
--- NOTE | 2017-11-03 20:45 | PDOC ---
History of Present Illness - General History Source: Patient Exam Limitations: No Limitations - History of Present Illness Initial Comments: 11/03/17 20:52 The patient is a 22 year old female, with no significant past medical history, who presents to the emergency department complaining of a sore throat for approximately 3 days. Patient reports she has noted her tonsils are swollen, associated nasal congestion, subjective fever, cough productive of clear sputum , and earache. Patient states she has had difficulty swallowing secondary to her sore throat. Patient states she was unable to sleep last night due to her pain. She denies associated joint aches, headache, dizziness, or lightheadedness. Patient reports some shortness of breath, but denies any chest pain, diaphoresis, or palpitations. She denies any abdominal pain, nausea, vomiting, or diarrhea. Patient reports a history of swollen tonsils in the past , for which her PCP recommended she follow up with ENT for, but she has not been able to. Patient reports recent sick contacts at work. She denies any recent travel. Allergies: NKDA Past Surgical History: Appendectomy Social History: Non smoker. No ETOH or recreational drug use. PCP: Dr. Pepe <Jonathan Osei - Last Filed: 11/03/17 20:52> <Beatrice Thompson - Last Filed: 11/03/17 21:30> - General Chief Complaint: Sore Throat Stated Complaint: SORE THROAT Time Seen by Provider: 11/03/17 20:22 Past History <Jonathan Osei - Last Filed: 11/03/17 20:52> - Past Medical History Anemia: No Asthma: No Cancer: No Cardiac Disorders: No CVA: No COPD: No CHF: No DVT: No Dementia: No Diabetes: No GI Disorders: Yes (gastritis) Disorders: No HTN: No Hypercholesterolemia: No Liver Disease: No Seizures: No Thyroid Disease: No - Surgical History Abdominal Surgery: No Appendectomy: Yes Cardiac Surgery: No Cholecystectomy: No Lung Surgery: No Neurologic Surgery: No Orthopedic Surgery: No - Suicide/Smoking/Psychosocial Hx Smoking History: Never smoked Have you smoked in the past 12 months: No Hx Alcohol Use: Yes (SOCIAL) Drug/Substance Use Hx: No Substance Use Type: None Hx Substance Use Treatment: No <Beatrice Thompson - Last Filed: 11/03/17 21:30> - Past Medical History Allergies/Adverse Reactions: Allergies Allergy/AdvReac Type Severity Reaction Status Date / Time No Known Allergies Allergy Verified 10/10/17 17:59 Home Medications: Ambulatory Orders NK [No Known Home Medication] 11/03/17 Review of Systems - Review of Systems Able to Perform ROS?: Yes Comments:: 11/03/17 20:54 CONSTITUTIONAL: Present: fever Absent: no chills, no fatigue EYES: Absent: visual changes ENT: Present: sore throat, ear pain, swollen tonsils, nasal congestion CARDIOVASCULAR: Absent: chest pain, no palpitations RESPIRATORY: Present: cough, shortness of breath GI: Absent: abdominal pain, no nausea, no vomiting, no constipation, no diarrhea GENITOURINARY: Absent: dysuria, no frequency, no hematuria MUSKULOSKELETAL: Absent: back pain, no arthralgia, no myalgia SKIN: Absent: rash NEURO: Absent: headache, dizziness, lightheadedness. <Osei,Giomilsy - Last Filed: 11/03/17 20:52> *Physical Exam - Vital Signs Last Vital Signs Temp Pulse Resp BP Pulse Ox 98.6 F 102 H 16 123/78 97 11/03/17 20:25 11/03/17 20:25 11/03/17 20:25 11/03/17 20:25 11/03/17 20:25 - Physical Exam Comments: 11/03/17 20:55 GENERAL: The patient is awake, alert, and fully oriented, in no acute distress. HEAD: Normal with no signs of trauma. EYES: Pupils equal, round and reactive to light, extraocular movements intact, sclera anicteric, conjunctiva clear with no pallor. ENT: Moderate posterior oropharynx erythema. 1+ edema bilateral tonsils, without exudates or masses. Uvula is midline. Ears normal, nares patent. Moist mucous membranes. NECK: Normal range of motion, mildly tender, moderate edema, anterior cervical lymphadenopathy. No JVD or other masses. LUNGS: Breath sounds equal, clear to auscultation bilaterally. No wheeze/ crackles. HEART: Mildly tachycardic. Regular rhythm, normal S1 and S2 without murmur or rub. EXTREMITIES: Normal range of motion, no edema. NEUROLOGICAL: Normal speech, normal gait. PSYCH: Normal mood, normal affect. SKIN: Warm, Dry, normal turgor, no rashes or lesions noted. <Jonathan Osei - Last Filed: 11/03/17 20:52> - Vital Signs Last Vital Signs Temp Pulse Resp BP Pulse Ox 98.6 F 102 H 16 123/78 97 11/03/17 20:25 11/03/17 20:25 11/03/17 20:25 11/03/17 20:25 11/03/17 20:25 <Beatrice Thompson - Last Filed: 11/03/17 21:30> *DC/Admit/Observation/Transfer - Attestations Scribe Attestion: 11/03/17 20:54 Documentation prepared by Jonathan Osei, acting as medical communication specialist for Beatrice Thompson MD. <Jonathan Osei - Last Filed: 11/03/17 20:52> <Beatrice Thompson - Last Filed: 11/03/17 21:30> Diagnosis at time of Disposition: Tonsillopharyngitis - Discharge Dispostion Disposition: HOME Condition at time of disposition: Stable - Referrals Referrals: ON STAFF,NOT [Primary Care Provider] - Tano Guerrero MD [Staff Physician] - - Patient Instructions Printed Discharge Instructions: DI for Pharyngitis/Tonsillopharyngitis -- Adult Additional Instructions: Rest; drink plenty of fluids Ibuprofen/naproxen/acetaminophen as needed for throat pain/fever No work tomorrow Return if you have severe difficulty swallowing or persistent high fever Follow-up with ENT physicians (Dr. Guerrero group) as discussed - Post Discharge Activity Forms/Work/School Notes: Back to Work
[2017-11-03] MEDS ORDERED: IBUPROFEN 600 MG TABLET (FP) PO ONE ×2 (21:31→21:34)
== END 2017-11-03 21:45 | disposition home or self-care (01) ==
LOC: FER 20:19
DX: B00.2 Herpesviral gingivostomatitis and pharyngotonsillitis (principal)
CPT/HCPCS: 87070; 87077; 87430; 99281-25

== ENCOUNTER 2018-09-07 09:47 | Emergency (ER) | payer OTHER ==
[2018-09-07 09:54] VITALS: BP 124/69; PULSE 109; TEMP 97.6; BMI 32.5
[2018-09-07] MEDS ORDERED: ALBUTEROL SO4 2.5/IPRATROPIUM 0.5 INH SOL 3 ML VIAL.NEB. NEB ONE ×4 (11:03→11:30)
--- NOTE | 2018-09-07 11:06 | PDOC ---
History of Present Illness <Mira Gilmore - Last Filed: 09/07/18 11:31> - General History Source: Patient Exam Limitations: No Limitations - History of Present Illness Initial Comments: 09/07/18 11:04 Patient came for evaluation of fevers and chills, sore throat pain, body aches, and productive cough with yellow phlegm. States onset was yesterday morning is progressively worsen. Took TheraFlu this morning which helps resolve some of the symptoms but feels is getting worse. Was seen yesterday by ENT and provided penicillin 500 mg 3 times a day and has taken 3 doses. 09/07/18 11:10 Timing/Duration: reports: getting worse Severity: reports: mild, moderate Modifying Factors: improves with: coughing Associated Symptoms: reports: cough, fever/chills, nasal congestion <Carolann Akins - Last Filed: 09/07/18 12:08> - General Chief Complaint: Cold Symptoms Stated Complaint: FEVER Time Seen by Provider: 09/07/18 10:52 Past History <Mira Gilmore - Last Filed: 09/07/18 11:31> - Travel Traveled outside of the country in the last 30 days: No Close contact w/someone who was outside of country & ill: No - Past Medical History Anemia: No Asthma: No Cancer: No Cardiac Disorders: No CVA: No COPD: No CHF: No DVT: No Dementia: No Diabetes: No GI Disorders: Yes (gastritis) Disorders: No HTN: No Hypercholesterolemia: No Liver Disease: No Seizures: No Thyroid Disease: No - Surgical History Abdominal Surgery: No Appendectomy: Yes Cardiac Surgery: No Cholecystectomy: No Lung Surgery: No Neurologic Surgery: No Orthopedic Surgery: No - Suicide/Smoking/Psychosocial Hx Smoking History: Never smoked Have you smoked in the past 12 months: No Information on smoking cessation initiated: No 'Breaking Loose' booklet given: 11/03/17 Hx Alcohol Use: No Drug/Substance Use Hx: No Substance Use Type: None Hx Substance Use Treatment: No <Carolann Akins - Last Filed: 09/07/18 12:08> - Past Medical History Allergies/Adverse Reactions: Allergies Allergy/AdvReac Type Severity Reaction Status Date / Time No Known Allergies Allergy Verified 09/07/18 09:54 Home Medications: Ambulatory Orders Albuterol Sulfate Inhaler - [Ventolin HFA Inhaler -] 1 - 2 inh PO Q4H #1 inhaler 09/07/18 predniSONE [Deltasone -] 20 mg PO BID #8 tablet 09/07/18 Review of Systems - Review of Systems Able to Perform ROS?: Yes Is the patient limited [place] proficient: Yes Constitutional: Yes: Symptoms Reported, See HPI, Fever, Malaise HEENTM: Yes: Symptoms Reported, See HPI, Nose Congestion, Throat Pain, Throat Swelling Respiratory: Yes: Symptoms reported, Cough, Productive cough : No: Symptoms Reported All Other Systems: Reviewed and Negative <Carolann Akins - Last Filed: 09/07/18 12:08> *Physical Exam - Vital Signs Last Vital Signs Temp Pulse Resp BP Pulse Ox 97.6 F 109 H 16 124/69 100 09/07/18 09:51 09/07/18 09:51 09/07/18 09:51 09/07/18 09:51 09/07/18 09:51 <Mira Gilmore - Last Filed: 09/07/18 11:31> - Vital Signs Last Vital Signs Temp Pulse Resp BP Pulse Ox 97.6 F 109 H 16 124/69 100 09/07/18 09:51 09/07/18 09:51 09/07/18 09:51 09/07/18 09:51 09/07/18 09:51 - Physical Exam General Appearance: Yes: Nourished, Appropriately Dressed, Apparent Distress, Mild Distress HEENT: positive: TMs Normal (congested but landmarks easily visualized), Pharynx Normal (erythematous but no exudate, tonsils enlarged, baseline), Pharyngeal Erythema, Rhinorrhea. negative: Tonsillar Exudate (clear drainage), TM Erythema Neck: positive: Supple, Lymphadenopathy (R), Lymphadenopathy (L) Respiratory/Chest: positive: Decreased Breath Sounds (worse on the right than the left). negative: Lungs Clear Musculoskeletal: positive: Normal Inspection Extremity: positive: Normal Capillary Refill, Normal Inspection, Normal Range of Motion Integumentary: positive: Dry, Warm, Pale Neurologic: positive: dispatcher chief oil II-XII NML intact, Fully Oriented, Alert, Normal Mood/ Affect, Normal Response, Motor Strength 5/5 <Carolann Akins - Last Filed: 09/07/18 12:08> Moderate Sedation - Procedure Monitoring Vital Signs: Procedure Monitoring Vital Signs Temperature 97.6 F 09/07/18 09:51 Pulse Rate 109 H 09/07/18 09:51 Respiratory Rate 16 09/07/18 09:51 Blood Pressure 124/69 09/07/18 09:51 O2 Sat by Pulse Oximetry (%) 100 09/07/18 09:51 <Mira Gilmore - Last Filed: 09/07/18 11:31> - Procedure Monitoring Vital Signs: Procedure Monitoring Vital Signs Temperature 97.6 F 09/07/18 09:51 Pulse Rate 109 H 09/07/18 09:51 Respiratory Rate 16 09/07/18 09:51 Blood Pressure 124/69 09/07/18 09:51 O2 Sat by Pulse Oximetry (%) 100 09/07/18 09:51 <Carolann Akins - Last Filed: 09/07/18 12:08> ED Treatment Course - Medications Given in the ED: ED Medications Discontinued Medications Generic Name Dose Route Start Last Admin Trade Name Mauricio PRN Reason Stop Dose Admin Albuterol/Ipratropium 1 amp 09/07/18 11:03 09/07/18 11:09 Duoneb - NEB 09/07/18 11:04 1 amp ONCE ONE Administration <Mira Gilmore - Last Filed: 09/07/18 11:31> Progress Note - Progress Note Progress Note: Influenza and rapid strep negative. Improved after 2 DuoNeb's, and prednisone. We'll treat with continued albuterol inhaler and four-day course of prednisone <Carolann Akins - Last Filed: 09/07/18 12:08> *DC/Admit/Observation/Transfer <Mira Gilmore - Last Filed: 09/07/18 11:31> - Discharge Dispostion Decision to Admit order: No <Carolann Akins - Last Filed: 09/07/18 12:08> Diagnosis at time of Disposition: Upper respiratory infection, viral - Discharge Dispostion Disposition: HOME Condition at time of disposition: Stable - Referrals Referrals: ON STAFF,NOT [Primary Care Provider] - - Patient Instructions Printed Discharge Instructions: DI for Viral Upper Respiratory Infection -- Adult Additional Instructions: Rest, drink lots of fluids: Teas, water, soups, Pedialyte Saltwater gargles Steamy showers/seem to face break up mucus Avoid contact with others until fevers and cough resolved Lots of handwashing and good hygiene Continue [id number] medications for symptomatic relief Tylenol or Motrin for fever and pain Continue albuterol nebulizers every 4-6 hours for the next 2 days then as needed for continued cough Prednisone as directed until completed Followup with private physician in one to 2 days Return to emergency department / pediatric hospital for worsened symptoms, fevers, dehydration - Post Discharge Activity Forms/Work/School Notes: Back to Work
[2018-09-07 11:39] LABS: URINE APPEARANCE TURBID; URINE BILIRUBIN NEGATIVE (<2.0 mg/dL); URINE GLUCOSE (UA) NEGATIVE (NEGATIVE); URINE KETONE NEGATIVE (NEGATIVE); URINE LEUK ESTERASE TRACE (NEGATIVE); URINE NITRITE NEGATIVE (NEGATIVE); URINE PROTEIN 1+ (NEGATIVE); URINE UROBILINOGEN NEGATIVE mg/dL (0.2-1.0)
[2018-09-07 11:40] LABS: URINE COLOR DK YELLOW
[2018-09-07 11:46] LABS: EPI CELLS MANY /HPF (FEW); URINE BACTERIA RARE /hpf (NONE SEEN); URINE MUCUS FEW
[2018-09-07] MEDS ORDERED: predniSONE 20 MG TABLET (UD) PO ONE (12:00)
[2018-09-07] MEDS ORDERED: predniSONE 20 MG TABLET (UD) ONE (12:02)
== END 2018-09-07 12:21 | disposition home or self-care (01) ==
LOC: JERFT 09:47
PROC: 3E0F7GC Introduction of Other Therapeutic Substance into Respiratory Tract, Via Natural or Artificial Opening (ICD-10-PCS; principal; 2018-09-07)
PROC: 3E0F7GC Introduction of Other Therapeutic Substance into Respiratory Tract, Via Natural or Artificial Opening (ICD-10-PCS; 2018-09-07)
DX: J06.9 Acute upper respiratory infection, unspecified (principal); B97.89 Other viral agents as the cause of diseases classified elsewhere
CPT/HCPCS: 81003; 81015; 84703; 87070; 87804; 87880; 94640; 99281-25

== ENCOUNTER 2019-03-06 07:06 | Emergency (ER) | payer OTHER | END 2019-03-06 09:25 | disposition home or self-care (01) | LOC: JER 07:06 ==

== ENCOUNTER 2019-09-21 11:45 | Emergency (ER) | payer OTHER ==
[2019-09-21 12:04] VITALS: BP 119/76; PULSE 103; TEMP 98.9; BMI 34.3
[2019-09-21] MEDS ORDERED: IBUPROFEN 600 MG TABLET (FP) PO ONE ×2 (12:06→12:10)
--- NOTE | 2019-09-21 12:06 | PDOC ---
History of Present Illness - General Chief Complaint: Respiratory Stated Complaint: FLU LIKE ILNESS Time Seen by Provider: 09/21/19 11:54 History Source: Patient Exam Limitations: No Limitations - History of Present Illness Initial Comments: 09/21/19 12:01 24-year-old female no past medical history here today with cough congestion sore throat and fever. Patient states her symptoms started yesterday she describes a cough which is nonproductive generalized body aches and deep back pain. No rash no recent travel or sick contacts. She did have a fever last night uncertain but noted it subjectively. She took Motrin last p.m. did not take anything for her symptoms today states she did not have a flu shot this year does have a primary doctor Dr. Susana Genao no other medical problems Past History - Past Medical History Allergies/Adverse Reactions: Allergies Allergy/AdvReac Type Severity Reaction Status Date / Time No Known Allergies Allergy Verified 03/06/19 07:16 Home Medications: Ambulatory Orders NK [No Known Home Medication] 09/21/19 Anemia: No Asthma: No Cancer: No Cardiac Disorders: No CVA: No COPD: No CHF: No DVT: No Dementia: No Diabetes: No GI Disorders: Yes (gastritis) Disorders: No HTN: No Hypercholesterolemia: No Liver Disease: No Seizures: No Thyroid Disease: No - Surgical History Abdominal Surgery: No Appendectomy: Yes Cardiac Surgery: No Cholecystectomy: No Lung Surgery: No Neurologic Surgery: No Orthopedic Surgery: No - Psycho Social/Smoking Cessation Hx Smoking History: Never smoked Have you smoked in the past 12 months: No 'Breaking Loose' booklet given: 11/03/17 Hx Alcohol Use: No Drug/Substance Use Hx: No Substance Use Type: None Hx Substance Use Treatment: No Review of Systems - Review of Systems Constitutional: Yes: Chills, Fever HEENTM: No: Eye Pain, Blurred Vision Respiratory: Yes: Cough. No: Orthopnea, Shortness of Breath Cardiac (ROS): No: Chest Pain, Irregular Heart Rate : No: Burning, Dysuria, Discharge Musculoskeletal: Yes: Joint Pain. No: Back Pain, Neck Pain Integumentary: No: Bruising, Erythema, Rash Neurological: No: Headache, Numbness Psychiatric: No: Stressors All Other Systems: Reviewed and Negative *Physical Exam - Vital Signs Last Vital Signs Temp Pulse Resp BP Pulse Ox 98.9 F 103 H 16 119/76 100 09/21/19 11:47 09/21/19 11:47 09/21/19 11:47 09/21/19 11:47 09/21/19 11:47 - Physical Exam 09/21/19 12:02 Awake alert no acute distress lungs are clear bilaterally there is no crackles or wheezes appreciated normal respiratory effort. Heart is regular without murmurs rubs or gallops abdomen is soft and nontender skin is warm and dry no rash patient is awake alert and oriented x3 no meningeal most overall well- appearing Medical Decision Making - Medical Decision Making 09/21/19 12:02 24-year-old female here today with viral syndrome cough congestion sore throat fever and body aches similar to the flu. Very likely of flu will recommended symptomatic treatment given warning signs which should seek repeat evaluation. Told to follow-up with her primary doctor Dr. Susana Genao lots of rest fluids given a work note no work until afebrile for 24 hours Discharge - Discharge Information Problems reviewed: Yes Clinical Impression/Diagnosis: Viral syndrome Condition: Good Disposition: HOME - Admission No - Additional Discharge Information Plan of Treatment: You should take Motrin 600 mg every 8 hours as needed for fever and body aches. Drink plenty of fluids get plenty of rest. Cover your mouth when coughing. No work until you are without a fever for 24 hours. Follow-up with your primary doctor Dr. Susana Genao as needed. If you develop persistent vomiting worsening shortness of breath confusion or any concerns seek repeat evaluation in the emergency department - Follow up/Referral - Patient Discharge Instructions Patient Printed Discharge Instructions: Influenza Additional Instructions: You should take Motrin 600 mg every 8 hours as needed for pain and fever. You can also take Tylenol 500 mg every 6 hours. You may alternate medications. Return for any persistent vomiting shortness of breath confusion or any concerns. You should follow-up with your primary care doctor as needed please call to schedule you should not return to work until you are without a fever for 24 hours - Post Discharge Activity Work/Back to School Note: Back to Work
== END 2019-09-21 12:17 | disposition home or self-care (01) ==
LOC: FER 11:45
DX: B34.9 Viral infection, unspecified (principal)
CPT/HCPCS: 99282-25

== ENCOUNTER 2020-04-14 22:54 | Emergency (ER) | payer OTHER ==
[2020-04-14 23:21] VITALS: BP 118/74; PULSE 93; TEMP 98.5; BMI 37.8
--- NOTE | 2020-04-14 23:25 | PDOC ---
History of Present Illness - General Chief Complaint: Edema Stated Complaint: RING STUCK ON LEFT RING FINGER Time Seen by Provider: 04/14/20 23:05 History Source: Patient Exam Limitations: No Limitations - History of Present Illness Initial Comments: 04/15/20 01:28 Pt was tgging on a right wedding ring, and it wouldnt come off; the finger swelled and now it is painful. Past History - Travel History Traveled outside of the country in the last 30 days: No Close contact w/someone who was outside of country & ill: No - Medical History Allergies/Adverse Reactions: Allergies Allergy/AdvReac Type Severity Reaction Status Date / Time No Known Allergies Allergy Verified 03/06/19 07:16 Home Medications: Ambulatory Orders NK [No Known Home Medication] 09/21/19 Anemia: No Asthma: No Cancer: No Cardiac Disorders: No CVA: No COPD: No CHF: No DVT: No Dementia: No Diabetes: No GI Disorders: Yes (gastritis) Disorders: No HTN: No Hypercholesterolemia: No Liver Disease: No Seizures: No Thyroid Disease: No - Surgical History Abdominal Surgery: No Appendectomy: Yes Cardiac Surgery: No Cholecystectomy: No Lung Surgery: No Neurologic Surgery: No Orthopedic Surgery: No - Psycho-Social/Smoking History Smoking History: Never smoked Have you smoked in the past 12 months: No Information on smoking cessation initiated: No 'Breaking Loose' booklet given: 11/03/17 - Substance Abuse Hx (Audit-C & DAST Scrn) How often the patient has a drink containing alcohol: Never Score: In Men: 4 or > Positive; In Women: 3 or > Positive: 0 Screen Result (Pos requires Nsg. Audit-10AR): Negative In the last yr the pt used illegal drug/Rx for NonMed reason: No Score: Yes response is considered Positive: 0 Screen Result (Positive result requires Nsg. DAST-10): Negative Review of Systems - Review of Systems Able to Perform ROS?: No Is the patient limited Icelandic proficient: No Constitutional: No: Symptoms Reported, See HPI, Chills, Diaphoresis, Fever, Loss of Appetite, Malaise, Night Sweats, Weakness, Weight Stable, Unintentional Wgt. Loss, Unexplained wgt Loss, Other HEENTM: No: Symptoms Reported, See HPI, Eye Pain, Blurred Vision, Tearing, Recent change in vision, Double Vision, Cataracts, Ear Pain, Ocular Prothesis, Ear Discharge, Nose Pain, Nose Congestion, Tinnitus, Nose Bleeding, Hearing Loss, Throat Pain, Throat Swelling, Mouth Pain, Dental Problems, Difficulty Swallowing, Mouth Swelling, Other Respiratory: No: Symptoms reported, See HPI, Cough, Orthopnea, Shortness of Breath, SOB with Exertion, SOB at Rest, Stridor, Wheezing, Productive cough, Hemoptysis, Other Cardiac (ROS): No: Symptoms Reported, See HPI, Chest Pain, Edema, Irregular Heart Rate, Lightheadedness, Palpitations, Syncope, Chest Tightness, Other ABD/GI: No: Symptoms Reported, See HPI, Abdominal Distended, Abd. Pain w/ defecation, Blood Streaked Bowels, Constipated, Diarrhea, Difficulty Swallowing, Nausea, Poor Appetite, Poor Fluid Intake, Rectal Bleeding, Vomiting, Indigestion, Abdominal cramping, Tarry Stools, Other : No: Symptoms Reported, See HPI, Burning, Dysuria, Discharge, Frequency, Flank Pain, Hematuria, Incontinence, Pain, Urgency, Testicular Mass, Testicular Swelling, Lesions, Testicular Pain, Other Musculoskeletal: No: Symptoms Reported, See HPI, Back Pain, Gout, Joint Pain, Joint Swelling, Muscle Pain, Muscle Weakness, Neck Pain, Joint Stiffness, Other Integumentary: No: Symptoms Reported, See HPI, Bruising, Change in Color, Change in Hair/Nails, Dryness, Erythema, Flushing, Lesions, Lumps, Pallor, Pruritus, Rash, Sweating, Other Neurological: No: Symptoms reported, See HPI, Headache, Numbness, Paresthesia, Pre-Existing Deficit, Seizure, Tingling, Tremors, Weakness, Unsteady Gait, Ataxia, Dizziness, Other Hematologic/Lymphatic: No: Symptoms Reported, See HPI, Anemia, Blood Clots, Easy Bleeding, Easy Bruising, Bleeding Diathesis, Lymph Node Abnormalities, Swollen Glands, Other *Physical Exam - Vital Signs Last Vital Signs Temp Pulse Resp BP Pulse Ox 98.5 F 93 H 18 118/74 100 04/14/20 23:18 04/14/20 23:18 04/14/20 23:18 04/14/20 23:18 04/14/20 23:18 - Physical Exam General Appearance: Yes: Nourished, Appropriately Dressed HEENT: positive: EOMI, JONATAN, Normal ENT Inspection, Normal Voice, Symmetrical, TMs Normal, Pharynx Normal Neck: positive: Tender, Trachea midline, Normal Thyroid, Rigid, Supple Respiratory/Chest: positive: Lungs Clear, Normal Breath Sounds, Respiratory Distress Cardiovascular: positive: Regular Rhythm, Regular Rate, S1, S2 Musculoskeletal: positive: Normal Inspection, CVA Tenderness Extremity: positive: Normal Capillary Refill, Normal Inspection, Normal Range of Motion Integumentary: positive: Normal Color, Dry, Warm Neurologic: positive: gas line repairer II-XII NML intact, Fully Oriented, Alert, Normal Mood/Affect, Normal Response, Motor Strength 5/5 Moderate Sedation - Post Procedure Assessment Tolerated procedure well: No Was a reversal agent used?: No Medical Decision Making - Medical Decision Making 04/15/20 01:28 Ring cutter used to cut the ring Discharge - Discharge Information Problems reviewed: Yes Clinical Impression/Diagnosis: Tight ring on finger Condition: Stable Disposition: HOME - Admission No - Follow up/Referral - Patient Discharge Instructions Patient Printed Discharge Instructions: DI for Finger Sprain - Post Discharge Activity
== END 2020-04-14 23:45 | disposition home or self-care (01) ==
LOC: FER 22:54
DX: S60.455A Superficial foreign body of left ring finger, initial encounter (principal); W49.04XA Ring or other jewelry causing external constriction, initial encounter
CPT/HCPCS: 99282-25

== ENCOUNTER 2020-12-27 14:11 | Emergency (ER) | payer OTHER ==
[2020-12-27 14:27] VITALS: BP 111/73; PULSE 76; TEMP 98.4; BMI 36.0
[2020-12-27 16:38] LABS: URINE APPEARANCE TURBID; URINE BILIRUBIN NEGATIVE (NEGATIVE); URINE COLOR YELLOW; URINE GLUCOSE (UA) NEGATIVE (NEGATIVE); URINE KETONE NEGATIVE (NEGATIVE); URINE LEUK ESTERASE NEGATIVE (NEGATIVE); URINE NITRITE NEGATIVE (NEGATIVE); URINE PROTEIN NEGATIVE (NEGATIVE); URINE UROBILINOGEN 0.2 mg/dL (0.2-1.0)
[2020-12-27 17:05] LABS: HCG,QUALITATIVE URINE Negative
== END 2020-12-27 18:55 | disposition home or self-care (01) ==
LOC: JER 14:11
DX: Z32.02 Encounter for pregnancy test, result negative (principal)
CPT/HCPCS: 36415; 81003; 84702; 84703; 99283-25